=== PATIENT | female | born 1965 | race Caucasian/White ===

== ENCOUNTER → 2016-04-30 | Outpatient (CLI) | payer MEDICARE, OTHER ==
[~2016-04-30] MED LIST: FIBER LAXATIVE500 MG PO; HYZAAR 100-12.1 EACH PO; IBUPROFEN800 MG PO; IMDUR ER TAB 3030 MG PO; MULTI-DAY VITA1 EACH PO; NEURONTIN 400400 MG PO; NORVASC 5 MG TAB5 MG PO; VITAMIN D 11000 UNIT PO; ZANAFLEX4 MG PO
[2016-04-30 10:42] LABS: HEMOGLOBIN 11.9 gm/dl (12.3-15.3); RED BLOOD COUNT 3.92 M/UL (4.00-5.10)
[2016-04-30 10:59] LABS: BUN/CREATININE RATIO 21 (0-10)
== END ==
LOC: LAB 10:05
PROVIDERS: Internal Medicine Interventional Cardiology
DX: Z01.812 Encounter for preprocedural laboratory examination (principal); I20.0 Unstable angina; Z88.6 Allergy status to analgesic agent
CPT/HCPCS: 36415; 80048; 85025; 85610; 85730; 93005

== ENCOUNTER → 2016-05-03 | Outpatient (CLI) | payer MEDICARE, OTHER ==
[~2016-05-03] VITALS: Ht 170.2 cm; Wt 108.4 kg
== END | disposition home or self-care (01) ==
LOC: CATH 05:34
DX: I20.9 Angina pectoris, unspecified (principal); R94.39 Abnormal result of other cardiovascular function study; I10 Essential (primary) hypertension; Z79.1 Long term (current) use of non-steroidal anti-inflammatories (NSAID); Z79.899 Other long term (current) drug therapy; R07.9 Chest pain, unspecified; R06.02 Shortness of breath; R53.83 Other fatigue; Z88.6 Allergy status to analgesic agent; Z88.5 Allergy status to narcotic agent; K57.90 Diverticulosis of intestine, part unspecified, without perforation or abscess without bleeding; M15.9 Polyosteoarthritis, unspecified
CPT/HCPCS: C1769; J0461; J0583; J1644; J2250; J3010; J7030; Q9963

== ENCOUNTER → 2020-09-26 | Outpatient (CLI) | payer MEDICARE | LOC: KOH-I 09-20 14:30 | DX: M47.26 Other spondylosis with radiculopathy, lumbar region (principal); M51.16 Intervertebral disc disorders with radiculopathy, lumbar region; M48.061 Spinal stenosis, lumbar region without neurogenic claudication; M47.817 Spondylosis without myelopathy or radiculopathy, lumbosacral region; M51.27 Other intervertebral disc displacement, lumbosacral region; M48.07 Spinal stenosis, lumbosacral region | CPT/HCPCS: 72148 ==

== ENCOUNTER 2020-11-05 16:15 | Emergency (ER) | payer MEDICARE | END 2020-11-05 19:54 | disposition home or self-care (01) | LOC: ER1 16:15 | DX: Z23 Encounter for immunization (principal); U07.1 COVID-19; I10 Essential (primary) hypertension; Z88.5 Allergy status to narcotic agent | CPT/HCPCS: 99284; M0243 ==